=== PATIENT | female | born 1960 | race Caucasian/White ===

== ENCOUNTER 2021-05-14 08:00 | Outpatient (CLI) | payer MEDICARE, OTHER | END 2021-05-14 23:59 | disposition home or self-care (01) | LOC: LAB.S 08:00 | PROVIDERS: ATTEND Physician Assistant Medical | DX: N39.0 Urinary tract infection, site not specified (principal) | CPT/HCPCS: 87077; 87086; 87181 ==

== ENCOUNTER 2021-11-30 09:29 | Outpatient (CLI) | payer MEDICARE, OTHER | END 2021-11-30 09:30 | disposition EMS.NT | LOC: EMS 09:29 | DX: R42 Dizziness and giddiness (principal) ==

== ENCOUNTER 2022-08-02 10:43 | Outpatient (CLI) | payer MEDICARE, OTHER ==
[2022-08-02 10:55] LABS: BASOPHILS % (AUTO) 0.9 %; EOSINOPHILS # (AUTO) 0.3 10^3/uL (0.0-0.7); EOSINOPHILS % (AUTO) 6.7 %; HCT - HEMATOCRIT 41.8 % (37.0-47.0); LYMPHOCYTES # (AUTO) 1.1 10^3/uL (1.5-3.5); MEAN CORPUSCULAR HEMOGLOBIN 28.3 pg (27.0-31.0); MEAN CORPUSCULAR HGB CONC 31.1 g/dL (32.0-36.0); MEAN CORPUSCULAR VOLUME 91.1 fL (81.0-99.0); MEAN PLATELET VOLUME 10.4 fL (7.9-10.8); MONOCYTES # (AUTO) 0.4 10^3/uL (0.0-1.0); MONOCYTES % (AUTO) 9.9 %; NEUTROPHILS # (AUTO) 2.5 10^3/uL (1.5-6.6); NEUTROPHILS % (AUTO) 57.3 %; PLT - PLATELET COUNT 220 10^3/uL (130-450); RED BLOOD COUNT 4.59 10^6/uL (4.20-5.40); RED CELL DISTRIBUTION WIDTH 14.2 % (12.0-15.0); WHITE BLOOD COUNT 4.4 x10^3/uL (4.8-10.8)
[2022-08-02 11:14] LABS: ALBUMIN 4.1 g/dL (3.2-5.5); ALBUMIN/GLOBULIN RATIO 1.5 (1.0-2.2); ALKALINE PHOSPHATASE 45 IU/L (42-121); ALT ALANINE AMINOTRANSFERASE 18 IU/L (10-60); AST ASPARTATE AMINOTRANSFERASE 17 IU/L (10-42); BILIRUBIN,TOTAL 0.4 mg/dL (0.2-1.0); BUN - BLOOD UREA NITROGEN 15 mg/dL (6-20); CALCIUM 9.5 mg/dL (8.5-10.3); CARBON DIOXIDE - CO2 31 mmol/L (21-32); CHLORIDE 102 mmol/L (101-111); CHOLESTEROL 216 mg/dL; CREATININE 0.8 mg/dL (0.4-1.0); GFR - MDRD 72 (>89); GLUCOSE 97 mg/dL (70-100); HDL CHOLESTEROL 73 mg/dL; LDL CHOLESTEROL,CALCULATED 122 mg/dL; LDL/HDL RATIO 1.7 (<4.4); POTASSIUM 4.2 mmol/L (3.5-5.0); SODIUM 140 mmol/L (135-145); TOTAL PROTEIN 6.9 g/dL (6.7-8.2); TRIGLYCERIDES 107 mg/dL; VLDL CHOLESTEROL 21 mg/dL
[2022-08-02 11:26] LABS: THYROID STIMULATING HORMONE 1.79 uIU/mL (0.34-5.60)
== END 2022-08-02 10:44 | disposition home or self-care (01) ==
LOC: LAB 10:43
PROVIDERS: ATTEND Physician Assistant
DX: M81.0 Age-related osteoporosis without current pathological fracture (principal); Z13.220 Encounter for screening for lipoid disorders; Z51.81 Encounter for therapeutic drug level monitoring; G47.00 Insomnia, unspecified
CPT/HCPCS: 36415; 80053; 80061; 83721; 84443; 85025

== ENCOUNTER 2022-11-06 08:59 | Outpatient (CLI) | payer MEDICARE, OTHER ==
--- NOTE | 2022-11-06 14:54 | MRI Report ---
PROCEDURE: BRAIN WO INDICATIONS: MS TECHNIQUE: Noncontrast axial T1 spin echo, axial T2 fast spin echo, sagittal and axial FLAIR, coronal T2 fast sp in echo, axial gradient echo, axial diffusion and ADC through the brain. COMPARISON: None. FINDINGS: Multiple T2/FLAIR hyperintense white matter signal abnormalities consistent with demyelinating plaque s of multiple sclerosis. No IV contrast was administered. No prior study is available for comparison. No unexpected intracranial susceptibility or restricted diffusion. No mass effect or midline shift. The ventricular system and basilar cisterns are patent. No gross orbital abnormality. Paranasal sinus es and mastoid air cells are predominantly clear. IMPRESSION: Numerous white matter lesions consistent with demyelinating plaques of multiple sclerosis Reviewed by: Kal Shah MD on 11/06/2022 2:53 PM PST Approved by: Kal Shah MD on 11/06/2022 2:53 PM PST Station ID: [id number]
--- NOTE | 2022-11-06 14:58 | MRI Report ---
PROCEDURE: CERVICAL SPINE WO INDICATIONS: MS TECHNIQUE: Noncontrast sagittal T1 spin echo and T2 fast spin echo, sagittal STIR, foraminal oblique sagittal T2 fast spin echo, and axial gradient echo or T2 fast spin echo through the cervical spine. COMPARISON: 03/07/2021 FINDINGS: There are at least a few small foci of increased T2 signal intensity peripheral aspects of the cervic al cord which are consistent with demyelinating lesions of multiple sclerosis. For example, lesion in the left lateral cord on series 22 image 27 at the C6-C7 level. Another lesion in the posterior left cervical cord on series 22 image 24 at the upper C6 level is also consistent with demyelinating lesi on. Increased signal in the left aspect of the cervical cord at the mid C3 level on series 20 image s ix is also suspicious for possible demyelinating lesion. All of these lesions are unchanged from prev ious exam. Normal cervical spine vertebral body height and alignment. No significant spinal canal or neural fora man narrowing identified. No suspicious bone marrow signal abnormality or bone marrow edema. Region al soft tissues normal. IMPRESSION: Few small foci of increased T2 signal intensity in the cervical cord consistent with demyelinating di sease lesions, not significantly changed from previous exam. Reviewed by: Kal Shah MD on 11/06/2022 2:56 PM PST Approved by: Kal Shah MD on 11/06/2022 2:56 PM PST Station ID: [id number]
--- NOTE | 2022-11-06 15:04 | MRI Report ---
PROCEDURE: THORACIC SPINE WO INDICATIONS: MS TECHNIQUE: Noncontrast sagittal T1 spine echo and T2 fast spin echo, sagittal STIR, axial T1 and T2 fast spin ec ho through the thoracic spine. COMPARISON: 03/07/2021. FINDINGS: From the sagittal STIR images there is a focus of increased T2 signal intensity spanning the T6 and T 7 vertebral body levels, suspicious for demyelinating lesion. This is unchanged to previous examinati on. No evidence of additional thoracic cord signal abnormality. Normal position and appearance of the conus. No spinal canal or neural foraminal stenosis. Normal thoracic vertebral body height and align ment. No suspicious focal marrow signal abnormality or bone marrow edema. Regional soft tissues kayleen l. IMPRESSION: Focus of increased T2 signal intensity in the thoracic cord at the T6 and T7 levels, unc hanged from prior study, consistent with demyelinating lesion. Reviewed by: Kal Shah MD on 11/06/2022 3:03 PM PST Approved by: Kal Shah MD on 11/06/2022 3:03 PM PST Station ID: [id number]
== END 2022-11-06 09:00 | disposition home or self-care (01) ==
LOC: DI 08:59
PROVIDERS: ATTEND Psychiatry & Neurology Neurology
DX: G35 Multiple sclerosis (principal)

== ENCOUNTER 2023-04-15 07:59 | Outpatient (CLI) | payer MEDICARE, OTHER ==
[2023-04-15 08:36] LABS: ALBUMIN 3.8 g/dL (3.2-5.5); ALBUMIN/GLOBULIN RATIO 1.8 (1.0-2.2); BILIRUBIN,TOTAL 0.4 mg/dL (0.2-1.0); CALCIUM 9.1 mg/dL (8.5-10.3); CREATININE 0.9 mg/dL (0.6-1.3); POTASSIUM 3.9 mmol/L (3.5-4.5); TOTAL PROTEIN 5.9 g/dL (6.4-8.9)
[2023-04-15 08:50] LABS: THYROID STIMULATING HORMONE 2.56 uIU/mL (0.34-5.60)
== END 2023-04-15 08:00 | disposition home or self-care (01) ==
LOC: LAB 07:59
PROVIDERS: ATTEND Physician Assistant
DX: M81.0 Age-related osteoporosis without current pathological fracture (principal); Z79.899 Other long term (current) drug therapy
CPT/HCPCS: 36415; 80053; 80061; 83721; 84443; 85025

== ENCOUNTER 2023-07-28 08:52 | Outpatient (CLI) | payer MEDICARE, OTHER ==
[2023-07-28 10:03] LABS: ALBUMIN 4.1 g/dL (3.2-5.5); ALBUMIN/GLOBULIN RATIO 2.1 (1.0-2.2); ALKALINE PHOSPHATASE 39 IU/L (42-121); ALT ALANINE AMINOTRANSFERASE 12 IU/L (10-60); AST ASPARTATE AMINOTRANSFERASE 14 IU/L (10-42); BILIRUBIN,TOTAL 0.4 mg/dL (0.2-1.0); BUN - BLOOD UREA NITROGEN 14 mg/dL (6-20); CALCIUM 9.5 mg/dL (8.5-10.3); CARBON DIOXIDE - CO2 30 mmol/L (21-32); CHLORIDE 106 mmol/L (101-111); CHOL/HDL RATIO 3.3 (<4.4); CHOLESTEROL 186 mg/dL; CREATININE 0.8 mg/dL (0.6-1.3); GFR - MDRD 72 (>89); GLUCOSE 93 mg/dL (74-104); HDL CHOLESTEROL 57 mg/dL; LDL CHOLESTEROL,CALCULATED 107 mg/dL; LDL/HDL RATIO 1.9 (<4.4); POTASSIUM 3.8 mmol/L (3.5-4.5); SODIUM 141 mmol/L (135-145); TOTAL PROTEIN 6.1 g/dL (6.4-8.9); TRIGLYCERIDES 112 mg/dL (48-352); VLDL CHOLESTEROL 22 mg/dL
== END 2023-07-28 08:53 | disposition home or self-care (01) ==
LOC: LAB 08:52
PROVIDERS: ATTEND Physician Assistant
DX: M81.0 Age-related osteoporosis without current pathological fracture (principal); E78.5 Hyperlipidemia, unspecified
CPT/HCPCS: 36415; 80053; 80061; 82306; 83721

== ENCOUNTER 2023-11-06 11:12 | Outpatient (CLI) | payer MEDICARE, OTHER ==
--- NOTE | 2023-11-06 11:58 | Sleep Patient Instructions ---
Sleep Center Visit Summary - Patient Visit Information Reason for Visit: Initial consult for evaluation of sleep disordered breathing and other sleep issues. - Patient Instructions Instructions Attached: Sleep Study Additional Instructions: You will be completing a sleep study, either an in-lab polysomnography (PSG) or home sleep study (HST). You will follow-up in the sleep care office after the sleep study is completed to hear the results and talk about therapy, if needed. You will be called by our office staff to schedule this appointment, but you may contact us with any questions. - Clinic Information Contact[facility] [address] [place] [address] [email or web address] T: [phone]
--- NOTE | 2023-11-06 12:03 | SLEEP CARE CONSULTATION ---
Information from patient questionnaire entered by Cheryl Alaniz. I have reviewed and concur with the information entered by Cheryl Alaniz. This document represents the service I personally performed and the decisions made by me, yR Salcedo ARNP. History of Present Illness Service Date and Time: 11/06/2023 1112 Reason for Visit: New patient Chief Complaint: reports: Insomnia, Unrefreshed sleep, Snoring, Observed pauses in breathing, Fatigue Date of Onset: 10YRS Usual bedtime: 10PM Time it takes to fall asleep: 90-120MINS Snores at night: Yes Observed to quit breathing while asleep: Yes Sleeps alone due to snoring: No Number of times waking at night: 4-5 Reasons for waking at night: reports: Gasping for air, Pain, Bathroom, Other (COUGHING). denies: Choking, Snoring Toss, Turn, or Twitch while sleeping: Yes Recalls having dreams: Yes Usually gets out of bed at: 8AM Feels refreshed in the morning: No Morning headache: No Sleepy or fatigued during the day: Yes Ever fallen asleep while driving: No Takes day naps: Yes (daily for about an hour) Dreams during day naps: No Prior sleep studies: No Additional HPI information: I had the pleasure of seeing SONYA GRACE today regarding the possibility of her having a sleep disorder. Her current complaints are fatigue, insomnia, unrefreshed sleep and observed pauses in breathing. Her has told her for a long time that she stops breathing when sleeping. She has been using a mouth guard for bruxism and it appears that her snoring and pauses in breathing at night. She has made these mouth guards at home and sometimes they do not fit well and cause jaw discomfort. Her throat gets really dry and she will cough at night. She wakes up feeling really tired. She has MS and she does feel tired during the day. She usually takes a nap for an hour on a daily basis. She lays down to sleep and cannot fall asleep for 1-2 hours. She will wake up after 4 to 6 hours of sleep. She can return to sleep but wakes up several times until she gets up for the day about 8 AM. She states her father has a CPAP and is being treated for sleep apnea. - Parasomnia Symptoms Ever been unable to move upon waking from sleep: No Walks in sleep: No Talks in sleep: No Ever acted out dreams in sleep: No Ever felt weak in the knees when startled or emotional: No Bothered by creepy, crawly, restless sensations in legs: Yes (mostly laying down; "spasicity" from MS) Problems with memory or concentration: Yes (both) Subjective Initial [place] Sleepiness Scale score: 8 (10/09/23) Past Medical History Past Medical History: reports: Other (MS, OSTEOPOROSIS, ENT CONGESTION, CHRONIC COUGH) Social History The patient's occupation is a RETIRED. Patient is and lives in [place]. Have you smoked in the past 12 months: Yes Cigarettes per day (20/pack): 20 Years of smokin Quit date: 1975 Smoking Pack Years: 3.0 Alcohol use: No Caffeine use: Yes Caffeine amount and frequency: 2 cups coffee in AM Family History Family history of sleep disordered breathing: Yes Family Hx Sleep Apnea: Father: Snoring, Sleep apnea - Treated Allergies and Home Medications Known drug allergies: Yes (SULFA) Drug allergies reviewed: Yes Home medication list reviewed: Yes (as listed) Allergy and home medication list: Allergies Sulfa (Sulfonamide Antibiotics) Allergy (Verified 10/24/23 11:14) Hives Home Medications Medication Instructions Recorded Confirmed Last Taken Type Azelaic Acid [Finacea] DAILY 10/14/22 Unknown History Baclofen [Lioresal] 10 mg PO QID 10/14/22 10/14/22 Unknown History Oxymorphone HCl 5 mg PO QID PRN 10/14/22 10/14/22 Unknown History Pregabalin [Lyrica] 50 mg PO QID 10/14/22 10/14/22 Unknown History Zolpidem Tartrate [Ambien] 10 mg PO DAILY PRN 10/14/22 10/14/22 Unknown History Flonase See Rx Instructions .ROUTE .COMPLEX 11/06/23 11/06/23 Unknown History Mucinex See Rx Instructions .ROUTE .COMPLEX 11/06/23 11/06/23 Unknown History Naproxen Sodium See Rx Instructions .ROUTE .COMPLEX 11/06/23 11/06/23 Unknown History Pseudoephedrine See Rx Instructions .ROUTE .COMPLEX 11/06/23 11/06/23 Unknown History Symproic See Rx Instructions .ROUTE .COMPLEX 11/06/23 11/06/23 Unknown History Tylenol See Rx Instructions .ROUTE .COMPLEX 11/06/23 11/06/23 Unknown History Wellbutrin Sr See Rx Instructions .ROUTE .COMPLEX 11/06/23 11/06/23 Unknown History Review of Systems Weight gain over past 5 years: 20 Cardiovascular: denies: high blood pressure Respiratory: reports: chronic cough Gastrointestinal: reports: difficulty swallowing Urinary: reports: incontinence, urgency Neurological: reports: gait or balance problems, other (DIZZINESS). denies: headaches Psychiatric: denies: anxiety, depression Ear/Nose/Throat: reports: nasal congestion, sinus problems, dry mouth/throat, hoarseness Endocrine: reports: sluggishness, too hot or cold Musculoskeletal: reports: back pain, muscle pain or cramping, mobility problems Immunologic: reports: sneezing Physical Exam Vital signs obtained and entered by: RY PARK-Dina Blood Pressure: 121/69 Cuff size: wrist (right) Heart Rate: 73 O2 Saturation: 99 Height: 5 ft 5 in Weight: 141 lb 6.4 oz Body Mass Index: 23.5 BMI Classification: Normal Neck circumference: 13 (inches) Mouth and throat: narrow oropharynx Soft palate: long Hard palate: Torus palatinus Uvula: normal Uvula visualization: 25% Mallampati Class III Tongue: enlarged in size with teeth cordova on lateral edges Tonsils: small Neck: normal w/o lymphadenopathy or thyromegaly Heart: regular rate and rhythm Lungs: clear bilaterally Impression and Plan 1. Suspected Obstructive Sleep Apnea-Hypopnea Syndrome, as suggested by a history of loud and irregular snoring, observed cessation of breath while asleep, gasping or choking in sleep, unrefreshed sleep and cognitive impairment. Narrow oropharynx and obesity are common predisposing factors for obstructive sleep apnea-hypopnea syndrome. I recommend proceeding to polysomnography to confirm the diagnosis and to assess severity. If the patient has significant sleep disordered breathing, a manual CPAP titration study will also be performed to find the optimal treatment pressure. I informed the patient of what the sleep studies involve and after some discussion, obtained agreement to proceed. The pathophysiology of obstructive sleep apnea-hypopnea syndrome was discussed with the patient and health risks of cardiovascular and cerebrovascular disease if not treated. Risks of drowsy driving discussed in detail and patient advised to avoid long distance driving and to breast puller at the first sign of drowsiness. Patient agreed to plan. * Schedule polysomnography +- manual CPAP titration study and return in 1-2 weeks after the study to discuss result and initiate therapy. * Avoid long distance driving or driving when feeling sleepy. * Avoid alcohol, sedative and muscle relaxant around bedtime. * Review instructions provided by trained office staff on how to prepare for the sleep study. * Return for follow-up after sleep study completed. Follow up with Sleep Care in: other (after sleep study) Plan: PSG Visit Type: In Office Time Spent with Patient (minutes): 34 Provider Statement: I spent 100% of the Face to Face Visit with the patient with greater than 50% spent counseling the patient and coordination of care.
[2023-11-06 12:10] VITALS: BP 121/69; O2SAT 99
== END 2023-11-06 11:13 | disposition home or self-care (01) ==
LOC: SC 11:12
PROVIDERS: ATTEND Nurse Practitioner Family
DX: G47.8 Other sleep disorders (principal); R53.83 Other fatigue; G47.00 Insomnia, unspecified; R06.81 Apnea, not elsewhere classified; G47.63 Sleep related bruxism; R06.83 Snoring; G35 Multiple sclerosis; F17.210 Nicotine dependence, cigarettes, uncomplicated; R41.89 Other symptoms and signs involving cognitive functions and awareness
CPT/HCPCS: 99203; G0463; 99212

== ENCOUNTER 2023-11-10 13:29 | Outpatient (CLI) | payer MEDICARE, OTHER ==
--- NOTE | 2023-11-11 09:01 | Mammography Report ---
BILATERAL DIGITAL SCREENING MAMMOGRAM 3D/2D: 11/10/2023 CLINICAL: Routine screening. Comparison is made to exams dated: 09/13/2021 mammogram, 08/22/2020 mammogram, and 07/26/2019 mammogr shawna Odell. There are scattered areas of fibroglandular density in both breasts (category b / 25%-50% glandular t issue). No significant masses, calcifications, or other findings are seen in either breast. There has been no significant interval change. IMPRESSION: NEGATIVE There is no mammographic evidence of malignancy. A 1 year screening mammogram is recommended. Based on the Tyrer Cuzick model (a risk assessment model) the patient's lifetime risk is 5.2% and her 10 year risk is 2.4%. According to the ACR, ACS, and NCCN guidelines, an annual breast MRI exam adonis g with mammogram is recommended if the patient's lifetime risk is 20% or greater. This exam was interpreted at Station ID: [id number]. NOTE: For mammograms, a report in lay terms will be sent to the patient. Approximately 15% of breast malignancies will not be visualized mammographically. In the management of a palpable breast mass, a negative mammogram must not discourage biopsy of a clinically suspicious lesion. Electronically Signed By: Nanda perry/gonzalo:11/10/2023 16:08:14 ACR BI-RADS Category 1: Negative 3341F PARENCHYMAL PATTERN: (A) - The breast(s) demonstrate(s) scattered fibroglandular densities. BI-RADS CATEGORY: (1) - 1 RECOMMENDATION: (ANNUAL) - Recommend routine annual screening mammography. [id number] 1 year screening LATERALITY: (B)
== END 2023-11-10 13:30 | disposition home or self-care (01) ==
LOC: DI 13:29
DX: Z12.31 Encounter for screening mammogram for malignant neoplasm of breast (principal); R92.323 Mammographic fibroglandular density, bilateral breasts

== ENCOUNTER 2023-11-10 13:31 | Outpatient (CLI) | payer MEDICARE, OTHER ==
--- NOTE | 2023-11-10 18:13 | DEXA Report ---
PROCEDURE: Dexa Spine and/or Hip INDICATIONS: OSTEOPOROSIS TECHNIQUE: Dual energy x-ray absorptiometry (DXA) was performed on a [employer] System. Regions measur ed are the AP Spine, femoral neck, and if needed forearm. COMPARISON: None. FINDINGS: Lumbar Spine: Bone Mineral Density: 1.19 g/cm/cm,T score: 0.1. Left Femoral Neck: Bone Mineral Density: 0.765 g/cm/cm, T score: -2.0. Left Hip: Bone Mineral Density: 0.776 g/cm/cm,T score: -1.8. (T score greater or equal to -1.0: NORMAL) (T score from -1.1 to -2.4: OSTEOPENIA) (T score less than or equal to -2.5 to: OSTEOPOROSIS) Impression: By WHO criteria, this patient has osteopenia and increased risk for osteoporotic fractures Patients with diagnosis of osteoporosis or osteopenia should have regular bone mineral density assess ment. For those eligible for Medicare, routine testing is allowed once every 2 years. Testing frequ ency can be increased for patients who have rapidly progressing disease or for those who are receivin g medical therapy to restore bone mass. Reviewed by: Mily York MD on 11/10/2023 5:12 PM KUSUM Approved by: Mily York MD on 11/10/2023 5:12 PM AKMARYLU Station ID: [id number]
== END 2023-11-10 13:32 | disposition home or self-care (01) ==
LOC: DI 13:31
PROVIDERS: ATTEND Physician Assistant
DX: M85.89 Other specified disorders of bone density and structure, multiple sites (principal)

== ENCOUNTER 2023-12-05 19:29 | Outpatient (CLI) | payer MEDICARE, OTHER | END 2023-12-05 19:30 | disposition home or self-care (01) | LOC: SC 19:29 | PROVIDERS: ATTEND Nurse Practitioner Family | DX: G47.33 Obstructive sleep apnea (adult) (pediatric) (principal); G47.61 Periodic limb movement disorder | CPT/HCPCS: 95810 ==

== ENCOUNTER 2024-01-22 11:06 | Outpatient (CLI) | payer MEDICARE, OTHER ==
--- NOTE | 2024-01-22 11:29 | Sleep Patient Instructions ---
Sleep Center Visit Summary - Patient Visit Information Reason for Visit: Sleep study follow-up - Patient Instructions Instructions Attached: Apnea Sleep Mouthpieces Additional Instructions: You have opted for an oral mandibular appliance to control your sleep apnea. A list of certified dentists in the area was provided for you to find a dentist to have your oral appliance made. Once you have the device, please call and make a follow up appointment. We need to see you after you have been using the appliance for a month. We will evaluate your response to therapy and order a follow up sleep study to check efficiency of treatment. Please call office to schedule a follow up appointment in the sleep care office one month after obtaining new device. - Clinic Information Contact: [facility] [address] [place] [address] [email or web address] T: [phone]
--- NOTE | 2024-01-22 11:34 | SLEEP CARE CONSULTATION ---
Information from patient questionnaire entered by Cheryl Alaniz. I have reviewed and concur with the information entered by Cheryl Alaniz. This document represents the service I personally performed and the decisions made by , Gabriela Salcedo ARNP. History of Present Illness Service Date and Time: 01/22/2024 1106 Initial [place] Sleepiness Scale score: 8 (10/09/23) Current [place] Sleepiness Scale score: 10 (01/22/24) Additional HPI information: SONYA GRACE returns with spouse for follow up and results of the recently performed polysomnography. The sleep study showed mild obstructive sleep apnea with an average AHI of 5.5 and debi oxygen saturation of 86%. She had moderate PLMs not contributing to sleep fragmentation. I explained the pathophysiology behind obstructive sleep apnea. We then spent quite a bit of time discussing different treatment options. For mild obstructive sleep apnea, urgery and oral appliance are alternatives to nasal CPAP therapy but in moderate or severe cases, nasal CPAP is the most effective and reliable treatment. Because apnea is primarily in supine position, then positional management therapy could be effective. Methods discussed such as positioning with pillows, using a T-shirt with tennis balls in the back or commercial products that have a pillow format on back to prevent supine sleep. I reviewed the impact of weight changes on sleep apnea and strongly recommended losing weight. After some discussion, the patient opted to go with the oral appliance. Patient does not drink alcohol. Patient was cautioned about risks of drowsy driving until sleepiness symptoms resolve. Patient does not have drowsy driving. Sleep Study - Results Type of Sleep Study: Polysomnography (COMPLETED 12/05/23) Prior sleep studies: No Polysomnography/Home Sleep Study results: IMPRESSION: The quality of the study is good. The patient had reduced sleep efficiency due to machine lead burner awakening. The sleep architecture was abnormal for lack of REM sleep. Respiratory monitoring showed mild obstructive sleep apnea-hypopnea (AHI = 5.5) associated with oxyhemoglobin desaturation and mild hypoxia (debi oxygen saturation of 86%). The respiratory events occurred only during supine sleep (supine AHI = 10.7; nonsupine = 0.00). Snore was light to moderate in intensity. There was moderate periodic leg movement of sleep not associated with sleep fragmentation. Cardiac rhythm was normal sinus rhythm without significant arrhythmia. No abnormal behavior (parasomnia) observed during the night. Allergies and Home Medications Known drug allergies: Yes (as listed) Drug allergies reviewed: Yes Home medication list reviewed: Yes (no changes) Allergy and home medication list: Allergies Sulfa (Sulfonamide Antibiotics) Allergy (Verified 01/19/24 13:02) Hives Review of Systems Review of systems same as previous: Yes (NO CHANGE) Physical Exam Vital signs obtained and entered by: CHERYL Arroyo MA Blood Pressure: 134/71 (LEFT ARM) Cuff size: regular Heart Rate: 75 O2 Saturation: 99 Height: 5 ft 5 in Weight: 141 lb Body Mass Index: 23.4 BMI Classification: Normal Impression and Plan 1. Obstructive Sleep Apnea-Hypopnea Syndrome, mild, with lowest oxygen saturation of 86%. Obviously this is the cause of the patients symptoms of unr efreshed sleep, and excessive daytime sleepiness. After some discussion, the patient opted to go with the oral appliance. A list of accredited dentists and one non-accredited dentist in [facility] area to call for a consult was given to patient. A prescription was given to start process. Patient advised to check insurance to see if oral appliance is covered. Some dentists do not take Medicare. I will have patient follow up in a month after she starts using her oral appliance to check effectiveness of treatment. If reduction of symptoms and comfortable with treatment, a polysomnography will be ordered using the oral appliance to check efficacy of treatment. She voiced understanding. 2. Hypoxemia, mild, with a debi oxygen saturation of 86% and 0.9 minutes spent under 90%. The baseline oxygen saturation was normal with an average oxygen saturation of 93%. * Oral appliance * Avoid supine sleep until using oral appliance. * Return one month after oral appliance obtained. I will assess response to therapy and compliance at that time. Counseling Topics: Sleeping position, Weight control Prescriptions: Other (Oral Appliance) Plan: Oral appliance therapy and follow up Visit Type: In Office Time Spent with Patient (minutes): 20 Provider Statement: I spent 100% of the Face to Face Visit with the patient with greater than 50% spent counseling the patient and coordination of care.
[2024-01-22 11:41] VITALS: BP 134/71; O2SAT 99
== END 2024-01-22 11:07 | disposition home or self-care (01) ==
LOC: SC 11:06
PROVIDERS: ATTEND Nurse Practitioner Family
DX: G47.33 Obstructive sleep apnea (adult) (pediatric) (principal); R09.02 Hypoxemia
CPT/HCPCS: 99213; G0463; 99212